=== PATIENT | male | born 1955 | race Hispanic/Latino ===

== ENCOUNTER 2018-07-29 06:38 | Day surgery (SDC) | payer OTHER ==
[2018-07-29] MEDS ORDERED: Lidocaine 2% MPF (5 ml) Inj ONE ×2 (06:52→08:11)
[2018-07-29] MEDS ORDERED: ceFAZolin 1 gm in NS 2 GM/200 ML BAG IVPB ONE (06:52)
[2018-07-29] MEDS ORDERED: MethylPREDNISolone Depo 40 mg/ml Inj ONE ×2 (06:52→08:13)
[2018-07-29] MEDS ORDERED: Iohexol 240 (50 ml) ONE (06:53)
[2018-07-29] MEDS ORDERED: Bupivacaine HCl 0.5% PF (30 ml) Inj ONE (06:53)
[2018-07-29 08:35] VITALS: BP 157/84; PULSE 58; RESP 18; TEMP 97.5; O2SAT 100
--- NOTE | 2018-07-29 15:27 | RAD ---
Date of service: 07/29/2018 PROCEDURE: Intraoperative Fluoroscopy. HISTORY: DEGENERATIVE JOINT DISEASE FINDINGS: Fluoroscopic assistance was provided for bilateral hip arthrography. Please refer to the operative report from PACO Cunningham DR, MD. 35.6 seconds of fluoro time was utilized with a cumulative radiation dose of 0.05774 mGym2.
--- NOTE | 2018-07-29 17:32 | PCM.SURG1 ---
Surgeon's Initial Post Op Note - Surgeon's Notes Surgeon: Lenny Carmona MD Transit Mechanic: None Type of Anesthesia: Local Pre-Operative Diagnosis: B/L hips: (right much worse than left). #1 severe DJD. #2 stiffness/ restricted ROM. #3 GT bursitis. #4 abductor tendonopathy Operative Findings: B/L hips: (right much worse than left). #1 severe DJD. #2 stiffness/ restricted ROM. #3 GT bursitis. #4 abductor tendonopathy Post-Operative Diagnosis: B/L hips: (right much worse than left). #1 severe DJD. #2 stiffness/ restricted ROM. #3 GT bursitis. #4 abductor tendonopathy Operation Performed: B/L hips flouroscopic guided intra-articular injection with lidocaine, marcaine, depomedrol Specimen/Specimens Removed: specimen= none. implants= none. complications= none. injection= each injection consisted of 5cc total: 2cc 2% Lidocaine w/o epi preservative free, 2cc 0.5% Marcaine w/o epi preservative free, 1cc 80mg Depomedrol preservative free Estimated Blood Loss: EBL {In ML}: 0 Blood Products Given: N/A Drains Used: No Drains Post-Op Condition: Good Date of Surgery/Procedure: 07/29/18 Time of Surgery/Procedure: 08:00
== END 2018-07-29 08:53 | disposition home or self-care (01) ==
LOC: C.SDS 06:38
PROVIDERS: ATTEND Student in an Organized Health Care Education/Training Program
DX: M16.11 Unilateral primary osteoarthritis, right hip (principal); M16.12 Unilateral primary osteoarthritis, left hip; M25.651 Stiffness of right hip, not elsewhere classified